=== PATIENT | female | born 1985 | race Caucasian/White ===

== ENCOUNTER → 2016-12-28 | Outpatient (CLI) | payer OTHER | LOC: MW.CHOBGYN 15:36 | PROVIDERS: ATTEND Advanced Practice Midwife | DX: Z34.90 Encounter for supervision of normal pregnancy, unspecified, unspecified trimester (principal) | CPT/HCPCS: 36415; 82950; 85027; 86850 ==

== ENCOUNTER → 2017-01-25 | Outpatient (CLI) | payer OTHER | END | disposition home or self-care (01) | LOC: MW.CHOBGYN 16:20 | PROVIDERS: ATTEND Advanced Practice Midwife | DX: N76.0 Acute vaginitis (principal) | CPT/HCPCS: 87480; 87510; 87660 ==

== ENCOUNTER → 2017-02-08 | Outpatient (CLI) | payer OTHER ==
--- NOTE | 2017-02-13 17:42 | US ---
EXAM DATE: 02/08/17 PATIENT'S AGE: 31 Patient: JUANITA ROME Facility: [facility] Site . Site : 1985 Study: US-OB Pelvis [id number]/4/2017 4:37:28 PM Ordering Physician: Sunita Arguelles Final Report: OB ULTRASOUND, 02/08/2017 CLINICAL HISTORY: Low-lying placenta seen previously. Checking distance cervix to placenta. TECHNIQUE: Endovaginal technique. FINDINGS: Cervical length measures 4.1 cm. The cervix is closed. Single live intrauterine . Fetus is in cephalic position. Positive cardiac activity measures 36 beats per minute. ANTWON measures 17.6 cm. There are no findings for placenta previa. Placental edge measures 5.8 cm from the cervical os. IMPRESSION: Single live intrauterine gestation. No findings for previa or low- lying placenta. GRACE STANTON M.D. Diagnostic/Breast Radiologist TP:eric: D& Transcribed: 9:21 AM [email or web address] DW/Dictated by: Grace Stanton MD @ 02/09/2017 9:08:00 AM Signed by: Grace Stanton MD @02/12/2017 10:17:30 AM (Electronic Signature) Report Signed by Proxy. YASMIN
== END ==
LOC: MW.US 15:37
PROVIDERS: ATTEND Advanced Practice Midwife
DX: O44.40 Low lying placenta NOS or without hemorrhage, unspecified trimester (principal)
CPT/HCPCS: 76817; 76817-26

== ENCOUNTER 2017-03-29 04:35 | Inpatient (IN) | payer OTHER ==
[2017-03-29] MEDS: Lactated Ringers 1,000 ML IV SCH ×3 (05:33→06:52)
--- NOTE | 2017-03-29 05:41 | PCM.LDHP ---
L&D History of Present Illness - General Date of Service: 03/29/17 Admit Problem/Dx: Admission Diagnosis/Problem Admission Diagnosis/Problem 03/29/17 05:37 31 yo [facility] 04/05/2017 39 0/7wks O+, RI, GBS neg, comes in active labor. 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: - Past Surgical History HEENT Surgical History: Reports: Tonsillectomy Social & Family History - Family History Family Medical History: Noncontributory - Tobacco Use Smoking Status *Q: Never Smoker - Recreational Drug Use Recreational Drug Use: No H&P Review of Systems - Review of Systems: Review Of Systems: See Below General: Reports: No Symptoms HEENT: Reports: No Symptoms Pulmonary: Reports: No Symptoms Cardiovascular: Reports: No Symptoms Gastrointestinal: Reports: No Symptoms Genitourinary: Reports: No Symptoms Musculoskeletal: Reports: No Symptoms Skin: Reports: No Symptoms Psychiatric: Reports: No Symptoms Neurological: Reports: No Symptoms Hematologic/Lymphatic: Reports: No Symptoms Immunologic: Reports: No Symptoms L&D Exam - Exam Exam: See Below - Vital Signs Weight: 81.193 kg - OB Specific Contraction Intensity: Strong Movement: Active Heart Tones: Present Heart Tones per Min: 130 - Exam General: Alert, Oriented, Cooperative HEENT: Hearing Intact Lungs: Normal Respiratory Effort Abdomen: Soft (gravid) Rectal Exam: Deferred Genitourinary: Normal bimanual exam, Cervical dilitation (pre RN) Back Exam: Full Range of Motion Extremities: Normal Inspection Skin: Warm, Dry, Intact Neurological: Cranial Nerves Intact, Normal Speech, Normal Tone Psychiatric: Alert, Normal Affect, Normal Mood - Problem List (1) Supervision of normal IUP (intrauterine ) in multigravida SNOMED Code(s): 358996574, 626042326, 493113071 ICD Code: Z34.80 - ENCOUNTER FOR SUPRVSN OF NORMAL , UNSP TRIMESTER Status: Acute Priority: High Current Visit: Yes Qualifiers: Trimester: third trimester Qualified Code(s): Z34.83 - Encounter for supervision of other normal , third trimester Problem List Initiated/Reviewed/Updated: Yes Assessment/Plan Comment:: A:31 yo [facility] 04/05/2017 39 0/7wks O+, RI, GBS neg, comes in active labor. P: admit, epidural prn, anticipate
[2017-03-29] MEDS ORDERED: Sodium Chloride 0.9% 10 ML Syringe FLUSH PRN (05:54)
[2017-03-29] MEDS ORDERED: Butorphanol 1 MG/ML SDV IVPUSH PRN (05:54)
[2017-03-29] MEDS ORDERED: Misoprostol 200 MCG Tab PO PRN (05:54)
[2017-03-29] MEDS ORDERED: Carboprost Tromethamine 250 MCG/1 ML Amp IM PRN (05:54)
[2017-03-29] MEDS ORDERED: Methylergonovine 0.2 MG/1 ML Amp IM PRN (05:54)
[2017-03-29] MEDS ORDERED: Water For Irrigation,Sterile 1,000 ML Container IRR PRN (05:54)
[2017-03-29] MEDS ORDERED: Nalbuphine 10 MG/1 ML Vial IVPUSH PRN (05:54)
[2017-03-29] MEDS ORDERED: Sodium Chloride 0.9% 2.5 ML Syringe FLUSH PRN (05:54)
[2017-03-29] MEDS ORDERED: Lidocaine 1% 50 ML MDV INJECT PRN (05:54)
[2017-03-29] MEDS ORDERED: Oxytocin/Lactated Ringers 30 UNIT/500 ML BAG IV SCH (06:00)
[2017-03-29] MEDS ORDERED: Ropivacaine 0.2% 2 MG/ML 20 ML SDV ONE (06:12)
[2017-03-29] MEDS ORDERED: fentaNYL 100 MCG/2 ML SDV ONE (06:12)
--- NOTE | 2017-03-29 07:08 | PCM.PREANE ---
Preanesthetic Assessment - Anesthesia/Transfusion/Family Hx Anesthesia History: Prior Anesthesia Without Reaction Family History of Anesthesia Reaction: No Transfusion History: No Prior Transfusion(s) - Review of Systems Pulmonary: No Symptoms Cardiovascular: No Symptoms Gastrointestinal: No symptoms Neurological: No Symptoms Other: Reports: None - Physical Assessment NPO Status Date: 03/29/17 NPO Status Time: 06:56 (cl liquids) Height: 1.75 m Weight: 81.193 kg ASA Class: 2 Mental Status: Alert & Oriented x3 Airway Class: Mallampati = 2 Dentition: Reports: Normal Dentition Thyro-Mental Finger Breadths: 3 Mouth Opening Finger Breadths: 3 ROM/Head Extension: Full Lungs: Clear to auscultation, Normal respiratory effort Cardiovascular: Regular Rate, Regular Rhythm - Lab Values: Laboratory Last Values WBC 10.69 K/uL (4.0-11.0) 03/29/17 05:12 RBC 4.04 M/uL (4.30-5.90) L 03/29/17 05:12 Hgb 11.0 g/dL (12.0-16.0) L 03/29/17 05:12 Hct 34.0 % (36.0-46.0) L 03/29/17 05:12 MCV 84.2 fL (80.0-98.0) 03/29/17 05:12 MCH 27.2 pg (27.0-32.0) 03/29/17 05:12 MCHC 32.4 g/dL (31.0-37.0) 03/29/17 05:12 RDW Std Deviation 45.7 fl (28.0-62.0) 03/29/17 05:12 RDW Coeff of Yamil 15 % (11.0-15.0) 03/29/17 05:12 Plt Count 242 K/uL (150-400) 03/29/17 05:12 MPV 10.00 fL (7.40-12.00) 03/29/17 05:12 Nucleated RBC % 0.3 /100WBC 03/29/17 05:12 Nucleated RBCs # 0 K/uL 03/29/17 05:12 Blood Type O POSITIVE 03/29/17 05:12 Antibody Screen NEGATIVE 03/29/17 05:12 - Allergies Allergies/Adverse Reactions: Allergies Allergy/AdvReac Type Severity Reaction Status Date / Time No Known Allergies Allergy Verified 02/16/14 15:20 - Blood Blood Available: Yes Product(s) Available: PRBC - Acknowledgements Anesthesia Type Planned: Epidural Pt an Appropriate Candidate for the Planned Anesthesia: Yes Alternatives and Risks of Anesthesia Discussed w Pt/Guardian: Yes Pt/Guardian Understands and Agrees with Anesthesia Plan: Yes PreAnesthesia Questionnaire 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 History: Reports: - Past Surgical History HEENT Surgical History: Reports: Tonsillectomy - SUBSTANCE USE Smoking Status *Q: Never Smoker Recreational Drug Use History: No - CURRENT (IN HOUSE) MEDS Current Meds: Current Medications Butorphanol Tartrate (Stadol) 1 mg IVPUSH Q1H PRN PRN Reason: Pain Carboprost Tromethamine (Hemabate Ds) 250 mcg IM ASDIRECTED PRN PRN Reason: Post Hemorrhage Lactated Ringer's (Ringers, Lactated) 1,000 mls @ 150 mls/hr IV ASDIRECTED VERÓNICA Last Admin: 03/29/17 06:52 Dose: 150 mls/hr Oxytocin/Lactated Ringer's (Pitocin In Lr 30 Units/500 Ml) 30 unit in 500 mls @ 2 mls/hr IV TITRATE VERÓNICA; 2 MUNITS/MIN PRN Reason: Protocol Stop: 03/30/17 05:59 Lidocaine HCl (Xylocaine 1%) 50 ml INJECT .ONCE PRN PRN Reason: Laceration repair Methylergonovine Maleate (Methergine) 0.2 mg IM ASDIRECTED PRN PRN Reason: Post Hemorrhage Misoprostol (Cytotec) 200 mcg PO .ONCE PRN PRN Reason: Post Hemorrhage Nalbuphine HCl (Nubain) 10 mg IVPUSH Q1H PRN PRN Reason: Pain (severe 7-10) Stop: 03/29/17 07:55 Sodium Chloride (Saline Flush) 10 ml FLUSH ASDIRECTED PRN PRN Reason: Keep Vein Open Sodium Chloride (Saline Flush) 2.5 ml FLUSH ASDIRECTED PRN PRN Reason: Keep Vein Open Sterile Water (Sterile Water For Irrigation) 1,000 ml IRR ASDIRECTED PRN PRN Reason: delivery Discontinued Medications Fentanyl (Sublimaze) Confirm Administered Dose 100 mcg .ROUTE .STK-MED ONE Stop: 03/29/17 06:13 Ropivacaine/Fentanyl/NS (Fentanyl 2 Mcg-Ropiv 0.2%-Ns) Confirm Administered Dose 100 mls @ as directed .ROUTE .STK-MED ONE Stop: 03/29/17 06:13 Ropivacaine (Naropin 0.2%) Confirm Administered Dose 20 ml .ROUTE .STK-MED ONE Stop: 03/29/17 06:13 - Free Text/Narrative Note: Labor Analgesia/Epidural Procedure start date: 03/29/17 time: 06 Attending provider aware Chart reviewed Permit signed Labs reviewed VS/ FHR reviewed Pt identified/ID band Pt assessed Risks/Benefits discussed and accepted Monitors in place (BP, HR, SPO2) Patient, Site, Procedure Verification, Pause. Pain "8-9/10" Fluid bolus infused (fluid type and amount): 1000 ml LR with continuing infusion Position: Sitting @ 0630 Prep: Betadine X 3 Sterile Drape Intradermal Wheal: 3 ml 1% Lidocaine Regional placement level: L3-4 Needle: 17 g Tuohy Approach: Midline Technique: TONO glass syringe w 3 ml Sterile water TONO needle depth: 5 cm Paresthesia: None Fluid Obtained: None Catheter insertion time: 634 Catheter depth at skin: 20 cm Test Dose Time: RX: 3 ml 1.5% lidocaine with 1:200,000 epi Response: Negative Loading dose Time: 641- 648 RX: 100 mcg fentanyl followed by 10 ml 0.2% ropivacaine in 2-4 ml increments over 7 minutes Pt position: semi fowlers with FLYNN Continuous infusion Start Time: 648 RX: 100 ml 0.2% ropivacaine with 200 mcg fentanyl added Continuous infusion rate: 9 ml/hr MARKETING TECHNOLOGY SPECIALIST bolus option: 5 ml q 15 min Pt response Post procedure pain level: "0/10" VS and FHR monitored in unit post placement (See OB traceview for documentation. ) Procedure end date: 03/29/17 time: 0712
[2017-03-29] MEDS ORDERED: Bisacodyl 10 MG Supp RECTAL PRN (08:10)
[2017-03-29] MEDS ORDERED: Benzocaine/Menthol 20%-0.5% Spray 78 GM Cannister TOP PRN (08:10)
[2017-03-29] MEDS ORDERED: Witch Hazel Medicated Pads 40/Jar TOP PRN (08:10)
[2017-03-29] MEDS ORDERED: Ibuprofen 400 MG Tab PO PRN (08:10)
[2017-03-29] MEDS ORDERED: oxyCODONE 5 MG Tab PO PRN (08:10)
[2017-03-29] MEDS ORDERED: Docusate Sodium 100 MG Cap PO PRN (08:10)
[2017-03-29] MEDS ORDERED: Acetaminophen 500 MG Tab PO PRN ×2 (08:10)
[2017-03-29] MEDS ORDERED: Lanolin 100% Cream 7 GM Tube TOP PRN (08:10)
--- NOTE | 2017-03-29 08:22 | PCM.DEL ---
L & D Note - General Info Date of Service: 03/29/17 Mother's Due Date: 04/05/17 - Delivery Note Labor: spontaneous Delivery Outcome: Livebirth Infant Delivery Method: Spontaneous Vaginal Delivery Infant Delivery Mode: Spontaneous Presentation: Vertex Nuchal Cord: Present (loose) Anesthesia Type: None Amniotic Fluid Description: Meconium stained Episiotomy Type: None Laceration: none Placenta: intact, spontaneous Cord: 3 vessels Estimated Blood Loss: 150 Resuscitation Needed: Yes : Warmed Score 1 min: 8 Score 5 min: 9 Second Stage Interventions: Reports: Pushing Effectively Delivery Comments (Free Text/Narrative):: of viable female over intact perineum. Head delivered with great pushing, nuchel x1 reduced over head, shoulders and body followed easily. to mothers abdomen with RN at for evaluation, Delayed cord clamping, pitocin to IVF, cord clamped x2 and cut by fob. Cord blood collected. Placenta delivered grossly intact, inspection noted intact perineum. EBL 150cc, APGARS 8/9, Wt pending bonding. Mother and infant left in stable condition for recovery - General Info Date of Service: 03/29/17 Admission Dx/Problem (Free Text): Admission Diagnosis/Problem Admission Diagnosis/Problem 03/29/17 05:37 31 yo ED[facility] 04/05/2017 39 0/7wks O+, RI, GBS neg, comes in active labor. Functional Status: Reports: pain controlled, tolerating diet - Review of Systems General: Reports: No Symptoms HEENT: Reports: no symptoms Pulmonary: Reports: no symptoms Cardiovascular: Reports: No Symptoms Gastrointestinal: Reports: No symptoms Genitourinary: Reports: no symptoms Musculoskeletal: Reports: no symptoms Skin: Reports: no symptoms Neurological: Reports: No Symptoms Psychiatric: Reports: no symptoms - Patient Data Weight - most recent: 81.193 kg Lab Results last 24 hrs: Laboratory Results - last 24 hr 03/29/17 03/29/17 Range/Units 05:12 05:12 WBC 10.69 (4.0-11.0) K/uL RBC 4.04 L (4.30-5.90) M/uL Hgb 11.0 L (12.0-16.0) g/dL Hct 34.0 L (36.0-46.0) % MCV 84.2 (80.0-98.0) fL MCH 27.2 (27.0-32.0) pg MCHC 32.4 (31.0-37.0) g/dL RDW Std Deviation 45.7 (28.0-62.0) fl RDW Coeff of Yamil 15 (11.0-15.0) % Plt Count 242 (150-400) K/uL MPV 10.00 (7.40-12.00) fL Nucleated RBC % 0.3 /100WBC Nucleated RBCs # 0 K/uL Blood Type O POSITIVE Antibody Screen NEGATIVE Med Orders - Current: Current Medications Acetaminophen (Tylenol Extra Strength) 500 mg PO Q4H PRN PRN Reason: Pain Acetaminophen (Tylenol Extra Strength) 1,000 mg PO Q4H PRN PRN Reason: Pain Benzocaine/Menthol (Dermoplast Pain Relief 20%-0.5% [place]) 78 gm TOP ASDIRECTED PRN PRN Reason: Perineal Comfort Measure Bisacodyl (Dulcolax) 10 mg RECTAL .ONCE PRN PRN Reason: Constipation Docusate Sodium (Colace) 100 mg PO BID PRN PRN Reason: Constipation Emollient Ointment (Lansinoh Hpa) 0 gm TOP ASDIRECTED PRN PRN Reason: Sore Nipples Ibuprofen (Motrin) 400 mg PO Q4H PRN PRN Reason: Pain Ibuprofen (Motrin) 800 mg PO Q6H PRN PRN Reason: Pain Oxycodone HCl (Oxycodone) 5 mg PO Q2H PRN PRN Reason: Pain Witch Bee (Tucks) 1 pad TOP ASDIRECTED PRN PRN Reason: comfort care Discontinued Medications Butorphanol Tartrate (Stadol) 1 mg IVPUSH Q1H PRN PRN Reason: Pain Carboprost Tromethamine (Hemabate Ds) 250 mcg IM ASDIRECTED PRN PRN Reason: Post Hemorrhage Fentanyl (Sublimaze) Confirm Administered Dose 100 mcg .ROUTE .STK-MED ONE Stop: 03/29/17 06:13 Lactated Ringer's (Ringers, Lactated) 1,000 mls @ 150 mls/hr IV ASDIRECTED VERÓNICA Last Admin: 03/29/17 06:52 Dose: 150 mls/hr Oxytocin/Lactated Ringer's (Pitocin In Lr 30 Units/500 Ml) 30 unit in 500 mls @ 2 mls/hr IV TITRATE VERÓNICA; 2 MUNITS/MIN PRN Reason: Protocol Stop: 03/30/17 05:59 Last Admin: 03/29/17 07:43 Dose: 2 munits/min, 2 mls/hr Ropivacaine/Fentanyl/NS (Fentanyl 2 Mcg-Ropiv 0.2%-Ns) Confirm Administered Dose 100 mls @ as directed .ROUTE .[employer]-MED ONE Stop: 03/29/17 06:13 Lidocaine HCl (Xylocaine 1%) 50 ml INJECT .ONCE PRN PRN Reason: Laceration repair Methylergonovine Maleate (Methergine) 0.2 mg IM ASDIRECTED PRN PRN Reason: Post Hemorrhage Misoprostol (Cytotec) 200 mcg PO .ONCE PRN PRN Reason: Post Hemorrhage Nalbuphine HCl (Nubain) 10 mg IVPUSH Q1H PRN PRN Reason: Pain (severe 7-10) Stop: 03/29/17 07:55 Ropivacaine (Naropin 0.2%) Confirm Administered Dose 20 ml .ROUTE .STK-MED ONE Stop: 03/29/17 06:13 Sodium Chloride (Saline Flush) 10 ml FLUSH ASDIRECTED PRN PRN Reason: Keep Vein Open Sodium Chloride (Saline Flush) 2.5 ml FLUSH ASDIRECTED PRN PRN Reason: Keep Vein Open Sterile Water (Sterile Water For Irrigation) 1,000 ml IRR ASDIRECTED PRN PRN Reason: delivery - Exam General: alert, oriented, cooperative, no acute distress HEENT: Mucous membr. moist/pink Lungs: Normal respiratory effort Abdomen: soft, no tenderness, no distension (Female) Exam: Normal External Exam, Normal Bimanual Exam, Vaginal Bleeding Back Exam: Full Range of Motion Extremities: no edema Skin: warm, dry, intact Wound/Incisions: healing well Neurological: no new focal deficit, normal speech, normal tone Psy/Mental Status: alert, normal affect, normal mood - Problem List & Annotations (1) Supervision of normal IUP (intrauterine ) in multigravida SNOMED Code(s): 621290442, 860006830, 731499770 Code(s): Z34.80 - ENCOUNTER FOR SUPRVSN OF NORMAL , UNSP TRIMESTER Status: Acute Priority: High Current Visit: Yes Qualifiers: Trimester: third trimester Qualified Code(s): Z34.83 - Encounter for supervision of other normal , third trimester (2) (normal spontaneous vaginal delivery) SNOMED Code(s): 25656756 Code(s): O80 - ENCOUNTER FOR FULL-TERM UNCOMPLICATED DELIVERY Status: Acute Priority: Medium Current Visit: Yes - Problem List Review Problem List Initiated/Reviewed/Updated: Yes - My Orders Last 24 Hours: My Active Orders 03/29/17 05:54 Heart Tones [RC] CONTINUOUS Non Stress Test [RC] PER UNIT ROUTINE May Shower [RC] ASDIRECTED Notify Provider [RC] PRN Up ad Shilpa [RC] ASDIRECTED Vaginal Exam [RC] PRN Vital Signs [RC] PER UNIT ROUTINE 03/29/17 08:10 May Shower [RC] ASDIRECTED Up ad Shilpa [RC] ASDIRECTED Vital Signs [RC] PER UNIT ROUTINE Acetaminophen [Tylenol Extra Strength] 1,000 mg PO Q4H PRN Acetaminophen [Tylenol Extra Strength] 500 mg PO Q4H PRN Benzocaine/Menthol [Dermoplast Pain Relief 20%-0.5% [place]] 78 gm TOP ASDIRECTED PRN Bisacodyl [Dulcolax] 10 mg RECTAL .ONCE PRN Docusate Sodium [Colace] 100 mg PO BID PRN Ibuprofen [Motrin] 400 mg PO Q4H PRN Ibuprofen [Motrin] 800 mg PO Q6H PRN Lanolin [Lansinoh HPA] See Dose Instructions TOP ASDIRECTED PRN Witch Bee [Tucks] 1 pad TOP ASDIRECTED PRN oxyCODONE 5 mg PO Q2H PRN Assess Lochia [WOMSER] Per Unit Routine Assess Uterine Involution [WOMSER] Per Unit Routine Peripheral IV Discontinue [OM.PC] Routine Resuscitation Status Routine 03/29/17 08:13 Patient Status [ADT] Routine 03/29/17 Breakfast Regular Diet [DIET] - Assessment Assessment:: of viable female. Intact perineum EBL 150cc, APGARS 8/9 Wt: pending. STable - Plan Plan:: A:31 yo EDC 04/05/2017 39 0/7wks O+, RI, GBS neg, comes in active labor. P: admit, epidural prn, anticipate PP P: routine pp plan of care.
[2017-03-29] MEDS: Ibuprofen 800 MG Tab PO PRN ×2 (08:44→17:03)
--- NOTE | 2017-03-29 15:43 | PCM48HPAN ---
Post Anesthesia Note - EVALUATION WITHIN 48HRS OF ANESTHETIC Vital Signs in Normal Range: Yes Patient Participated in Evaluation: Yes Respiratory Function Stable: Yes Airway Patent: Yes Cardiovascular Function Stable: Yes Hydration Status Stable: Yes Pain Control Satisfactory: Yes Nausea and Vomiting Control Satisfactory: Yes Mental Status Recovered: Yes
[2017-03-30] MEDS: Ibuprofen 800 MG Tab PO PRN (00:44)
--- NOTE | 2017-03-30 12:02 | PCM.DCSUM1 ---
Discharge Summary - Hospital Course Free Text/Narrative:: Discharge home in . Follow up 6 weeks or sooner if needed. - Discharge Data Discharge Date: 03/30/17 Discharge Disposition: Home, Self-Care 01 Condition: Good - Discharge Diagnosis/Problem(s) (1) Supervision of normal IUP (intrauterine ) in multigravida SNOMED Code(s): 381304607, 331713091, 966038623 ICD Code: Z34.80 - ENCOUNTER FOR SUPRVSN OF NORMAL , UNSP TRIMESTER Status: Acute Priority: High Current Visit: Yes Qualifiers: Trimester: third trimester Qualified Code(s): Z34.83 - Encounter for supervision of other normal , third trimester (2) (normal spontaneous vaginal delivery) SNOMED Code(s): 42725917 ICD Code: O80 - ENCOUNTER FOR FULL-TERM UNCOMPLICATED DELIVERY Status: Acute Priority: Medium Current Visit: Yes - Patient Instructions Diet: Usual Diet as Tolerated Activity: As Tolerated, Rest and Relax Today Driving: Do Not Drive Showering/Bathing: May Shower Notify Provider of: Fever, Increased Pain, Swelling and Redness, Nausea and/or Vomiting - Discharge Plan Referrals: [facility] [Outside] Kindra Dorsey CNM [Primary Care Provider] - 05/10/17 10:45 am - General Info Date of Service: 03/30/17 Admission Dx/Problem (Free Text: Admission Diagnosis/Problem Admission Diagnosis/Problem 03/29/17 05:37 31 yo EDC 04/05/2017 39 0/7wks O+, RI, GBS neg, comes in active labor. Functional Status: Reports: pain controlled, tolerating diet, ambulating, urinating - Review of Systems General: Reports: No Symptoms HEENT: Reports: no symptoms Pulmonary: Reports: no symptoms Cardiovascular: Reports: No Symptoms Gastrointestinal: Reports: No symptoms Genitourinary: Reports: no symptoms Musculoskeletal: Reports: no symptoms Skin: Reports: no symptoms Neurological: Reports: No Symptoms Psychiatric: Reports: no symptoms - Patient Data Vitals - Most Recent: Last Vital Signs Temp 36.7 C 03/30/17 04:00 Pulse 75 03/30/17 04:00 Resp 14 03/30/17 04:00 BP 130/65 03/30/17 04:00 Pulse Ox 98 03/30/17 04:00 Weight - Most Recent: 81.193 kg Med Orders - Current: Current Medications Acetaminophen (Tylenol Extra Strength) 500 mg PO Q4H PRN PRN Reason: Pain Acetaminophen (Tylenol Extra Strength) 1,000 mg PO Q4H PRN PRN Reason: Pain Benzocaine/Menthol (Dermoplast Pain Relief 20%-0.5% [place]) 78 gm TOP ASDIRECTED PRN PRN Reason: Perineal Comfort Measure Bisacodyl (Dulcolax) 10 mg RECTAL .ONCE PRN PRN Reason: Constipation Docusate Sodium (Colace) 100 mg PO BID PRN PRN Reason: Constipation Last Admin: 03/29/17 08:44 Dose: 100 mg Emollient Ointment (Lansinoh Hpa) 0 gm TOP ASDIRECTED PRN PRN Reason: Sore Nipples Ibuprofen (Motrin) 400 mg PO Q4H PRN PRN Reason: Pain Ibuprofen (Motrin) 800 mg PO Q6H PRN PRN Reason: Pain Last Admin: 03/30/17 00:44 Dose: 800 mg Oxycodone HCl (Oxycodone) 5 mg PO Q2H PRN PRN Reason: Pain Witch Bee (Tucks) 1 pad TOP ASDIRECTED PRN PRN Reason: comfort care Discontinued Medications Butorphanol Tartrate (Stadol) 1 mg IVPUSH Q1H PRN PRN Reason: Pain Carboprost Tromethamine (Hemabate Ds) 250 mcg IM ASDIRECTED PRN PRN Reason: Post Hemorrhage Fentanyl (Sublimaze) Confirm Administered Dose 100 mcg .ROUTE .STK-MED ONE Stop: 03/29/17 06:13 Lactated Ringer's (Ringers, Lactated) 1,000 mls @ 150 mls/hr IV ASDIRECTED VERÓNICA Last Admin: 03/29/17 06:52 Dose: 150 mls/hr Oxytocin/Lactated Ringer's (Pitocin In Lr 30 Units/500 Ml) 30 unit in 500 mls @ 2 mls/hr IV TITRATE VERÓNICA; 2 MUNITS/MIN PRN Reason: Protocol Stop: 03/30/17 05:59 Last Admin: 03/29/17 07:43 Dose: 2 munits/min, 2 mls/hr Ropivacaine/Fentanyl/NS (Fentanyl 2 Mcg-Ropiv 0.2%-Ns) Confirm Administered Dose 100 mls @ as directed .ROUTE .STK-MED ONE Stop: 03/29/17 06:13 Lidocaine HCl (Xylocaine 1%) 50 ml INJECT .ONCE PRN PRN Reason: Laceration repair Methylergonovine Maleate (Methergine) 0.2 mg IM ASDIRECTED PRN PRN Reason: Post Hemorrhage Misoprostol (Cytotec) 200 mcg PO .ONCE PRN PRN Reason: Post Hemorrhage Nalbuphine HCl (Nubain) 10 mg IVPUSH Q1H PRN PRN Reason: Pain (severe 7-10) Stop: 03/29/17 07:55 Ropivacaine (Naropin 0.2%) Confirm Administered Dose 20 ml .ROUTE .STK-MED ONE Stop: 03/29/17 06:13 Sodium Chloride (Saline Flush) 10 ml FLUSH ASDIRECTED PRN PRN Reason: Keep Vein Open Sodium Chloride (Saline Flush) 2.5 ml FLUSH ASDIRECTED PRN PRN Reason: Keep Vein Open Sterile Water (Sterile Water For Irrigation) 1,000 ml IRR ASDIRECTED PRN PRN Reason: delivery - Exam General: Reports: alert, oriented, cooperative, no acute distress Lungs: Reports: Normal respiratory effort Abdomen: Reports: soft, no tenderness, no distension (Female) Exam: Vaginal Bleeding Rectal (Female) Exam: Deferred Back Exam: Reports: Full Range of Motion Extremities: Reports: no edema, no tenderness/swelling, no calf tenderness Skin: Reports: warm, dry, intact Wound/Incisions: Reports: healing well Neurological: Reports: no new focal deficit Psy/Mental Status: Reports: alert, normal affect, normal mood *Q Meaningful Use (DIS) - VTE *Q VTE Criteria *Q: - Stroke *Q Stroke Criteria *Q: - AMI *Q AMI Criteria *Q:
[2017-03-30 13:29] VITALS: BP 115/59
== END 2017-03-30 13:25 | disposition home or self-care (01) | DRG 775 ==
LOC: MW.OBCHECK 04:35 → MW.OB 04:35 → MW.OBCHECK 05:54 → OBSVTOIN 07:37 → MW.OB 11:15
PROVIDERS: ADMIT Obstetrics & Gynecology; ATTEND Obstetrics & Gynecology
PROC: 10E0XZZ Delivery of Products of Conception, External Approach (ICD-10-PCS; principal; 2017-03-29)
DX: O69.1XX0 Labor and delivery complicated by cord around neck, with compression, not applicable or unspecified (principal); O77.0 Labor and delivery complicated by meconium in amniotic fluid; Z3A.39 39 weeks gestation of pregnancy; Z37.0 Single live birth
CPT/HCPCS: 01967; 36415; 59025; 85027; 86850; 86900; 86901; A9270-GY; J7120